=== PATIENT | female | born 1935 | race Caucasian/White ===

== ENCOUNTER 2022-08-05 10:44 | Emergency (ER) | payer BC, SELFPAY ==
[2022-08-05] VITALS (43 sets, daily range): BP systolic 109–142; BP diastolic 56–116; PULSE 50–66; RESP 9–29; TEMP 36.4; O2SAT 72–100
--- NOTE | ~2022-08-05 | XR_ITS ---
EXAMINATION: XR hand LT min 3V DATE: 08/05/2022 12:37 INDICATION: Left hand injury. TECHNIQUE: 3 views of left hand were obtained. COMPARISON: None. FINDINGS: There is a comminuted fracture of distal radius status post open reduction internal fixatio n with volar plate and screws. There is 6 degrees dorsal tilt of the distal articular surface. There is an avulsion fracture of the ulnar styloid. Osteopenia is noted. There is a transverse fracture of neck of third metacarpal with 2 mm ulnar displacement of the distal fracture fragment. There is an ob lique fracture of neck of fourth metacarpal with impaction and 2 mm ulnar displacement of the distal fracture fragment. There is a transverse fracture of neck of fifth metacarpal. There is impaction and 2 mm radial displacement of the distal fracture fragment. There is a fracture of diaphysis of fifth proximal phalanx. The distal fracture fragment demonstrates 17 degrees dorsal angulation and 1 mm uln ar displacement. There is an oblique fracture of diaphysis of fourth proximal phalanx in near-anatomi c alignment. There is mild osteoarthritis of some the interphalangeal joints and triscaphe joint. IMPRESSION: 1. Fractures of the third-fifth metacarpals and fourth and fifth proximal phalanges. 2. Comminuted fracture of distal radius status post open reduction internal fixation. 3. Avulsion fracture of the ulnar styloid. Reviewed, dictated and finalized at location A. IMPRESSION: 1. Fractures of the third-fifth metacarpals and fourth and fifth proximal phala nges. 2. Comminuted fracture of distal radius status post open reduction internal fix ation. 3. Avulsion fracture of the ulnar styloid.
--- NOTE | ~2022-08-05 | CT_ITS ---
EXAMINATION: CT facial & cervical spine wo DATE: 08/05/2022 12:28 INDICATION: Head injury. TECHNIQUE: Computed tomography (CT) of the maxillofacial region and cervical spine was performed with out intravenous contrast. Automated exposure control and iterative reconstruction technique were empl oyed. The dose-length product was 235.24 mGy-cm. COMPARISON: None FINDINGS: MAXILLOFACIAL CT: There are likely changes of ocular lens replacement surgeries. There is rightward deviation of the na marc septum. There is mild mucosal thickening in the paranasal sinuses. There are fracture deformities of the anterior and posterolateral madrigal of the left maxillary sinus, floor and lateral wall of the left orbit, and left zygomatic arch. There is extensive dental disease. There is soft tissue swelling of the left cheek. CERVICAL SPINE CT: Bone alignment is normal. Vertebral body heights are normal. There is mildly decreased disc height at C3-C4. The following disc levels are specifically discussed: C2-C3: There is mild bilateral uncovertebral joint osteoarthritis. There is mild bilateral facet join t osteoarthritis. There is no neural foraminal stenosis. There is no central canal stenosis. C3-C4: There is severe bilateral uncovertebral joint osteoarthritis. There is no facet joint osteoart hritis. There is mild bilateral neural foraminal stenosis. There is no central canal stenosis. C4-C5: There is mild bilateral uncovertebral joint osteoarthritis. There is no facet joint osteoarthr itis. There is no neural foraminal stenosis. There is no central canal stenosis. C5-C6: There is mild left uncovertebral joint osteoarthritis. There is no facet joint osteoarthritis. There is no neural foraminal stenosis. There is no central canal stenosis. C6-C7: There is no uncovertebral joint osteoarthritis. There is no facet joint osteoarthritis. There is no neural foraminal stenosis. There is no central canal stenosis. C7-T1: There is no uncovertebral joint osteoarthritis. There is mild right facet joint osteoarthritis . There is no neural foraminal stenosis. There is no central canal stenosis. IMPRESSION: 1. Fractures of the left zygomaticomaxillary complex. 2. Mild cervical spondylosis. Reviewed, dictated and finalized at location A.
--- NOTE | ~2022-08-05 | CT_ITS ---
EXAMINATION: CT brain wo con DATE: 08/05/2022 12:28 INDICATION: Head injury. TECHNIQUE: Computed tomography (CT) of the head was performed without intravenous contrast. The mA wa s adjusted according to patient size. Iterative reconstruction technique was employed. The dose-lengt h product was 605.33 mGy-cm. COMPARISON: None FINDINGS: There is no intracranial hemorrhage, acute infarction, or abnormal intracranial mass lesion . There are scattered areas of low attenuation in the cerebral white matter, which is within normal l imits for the patient's age. The ventricles are normal in size. 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 There are fractures of the left zygomaticomaxillary complex. IMPRESSION: 1. Normal aging brain. 2. Fractures of the left zygomaticomaxillary complex, likely chronic. Reviewed, dictated and finalized at location A.
--- NOTE | ~2022-08-05 | XR_ITS ---
EXAMINATION: XR knee LT 3V DATE: 08/05/2022 12:38 INDICATION: Left knee injury. TECHNIQUE: 3 views of left knee were obtained. COMPARISON: None. FINDINGS: Bone alignment is normal. No fracture. There is mild tricompartmental osteoarthritis of the knee. No knee joint effusion. IMPRESSION: 1. Mild left knee osteoarthritis. Reviewed, dictated and finalized at location A.
--- NOTE | 2022-08-05 11:08 | PC.NURSE ---
Pt states the fall was a mechanical and denies feeling dizziness or lightheadedness. Pt denies any LOC.
--- NOTE | 2022-08-05 12:27 | ED.GENADULT ---
HPI - General Adult General Chief complaint: Fall Stated complaint: UNWITNESSED FALL/HEAD INJURY Time Seen by Provider: 08/05/22 11:06 History of Present Illness HPI narrative: 87-year-old female presenting to the emergency department for evaluation after having a possible ground-level fall. Patient was found laying on the floor was complaining of left hand pain. Patient does have a prior injury to her left hand that is currently splinted. Patient was also laying on her face. Patient denies any pain or complaints. Patient does have history of dementia and does not recall her attempts at eloping or any fall or injury. Patient denies any complaints at this time. Related Data Allergies Allergy/AdvReac Type Severity Reaction Status Date / Time No Known Allergies Allergy Verified 08/05/22 10:51 Review of Systems Review of Systems: All systems reviewed & are unremarkable except as noted in HPI and below Exam Narrative: APPEARANCE: Well appearing, no pain, no distress, well-nourished. HEAD: normocephalic, atraumatic. EYES: PERRLA/EOMI, conjunctivae clear. NOSE: Normal no drainage NECK: Supple. No adenopathy, no masses. RESPIRATORY: Airway patent, respirations nonlabored. Clear to auscultation bilaterally, no rales, rhonchi, wheezing. CARDIOVASCULAR: Regular rate and rhythm without murmurs rubs or gallops. ABDOMINAL: Soft, nontender, nondistended, normal bowel sounds MUSCULOSKELETAL: Left wrist and fingers are splinted NEURO: Alert. Cranial nerves II through XII intact. Good gait. Good coordination SKIN: Warm, dry. Normal Color Course Course Emergency Course: 87-year-old female presented to the ED for evaluation after being found on the ground after a suspected fall. During the entire time in the ED patient has denied any new pain or complaints. Patient's left hand and fingers are splinted appropriately. On reevaluation patient continues to deny any complaints. Patient is neurovascular intact. Patient was after the results of her work-up. Patient was well-appearing at time of discharge from the ED. Vital Signs Vital signs: Vital Signs Temperature 97.6 F 08/05/22 10:51 Pulse Rate 55 L 08/05/22 10:51 Respiratory Rate 22 H 08/05/22 10:51 Blood Pressure 142/83 H 08/05/22 10:51 Pulse Oximetry 100 08/05/22 10:51 Oxygen Delivery Room Air 08/05/22 10:51 Temperature 97.6 F 08/05/22 10:51 Pulse Rate 53 L 08/05/22 17:31 Respiratory Rate 15 08/05/22 17:31 Blood Pressure 130/66 08/05/22 17:31 Pulse Oximetry 96 08/05/22 17:15 Oxygen Delivery Room Air 08/05/22 10:51 Medical Decision Making Vital Signs Vital Signs: Vital Signs Temperature 97.6 F 08/05/22 10:51 Pulse Rate 55 L 08/05/22 10:51 Respiratory Rate 22 H 08/05/22 10:51 Blood Pressure 142/83 H 08/05/22 10:51 Pulse Oximetry 100 08/05/22 10:51 Oxygen Delivery Room Air 08/05/22 10:51 Temperature 97.6 F 08/05/22 10:51 Pulse Rate 53 L 08/05/22 17:31 Respiratory Rate 15 08/05/22 17:31 Blood Pressure 130/66 08/05/22 17:31 Pulse Oximetry 96 08/05/22 17:15 Oxygen Delivery Room Air 08/05/22 10:51 Imaging Data Radiologist's impression: Impressions Head CT 08/05/22 12:33 IMPRESSION: 1. Normal aging brain. 2. Fractures of the left zygomaticomaxillary complex, likely chronic. ADDENDUM: 08/05/22 [id number] Upon further review and comparison with the maxillofacial CT, the left zygomaticomaxillary complex fractures are likely acute. Head/Cervical Spine/Facial Bones CT 08/05/22 12:36 IMPRESSION: 1. Fractures of the left zygomaticomaxillary complex. 2. Mild cervical spondylosis. Hand X-Ray 08/05/22 12:42 IMPRESSION: 1. Fractures of the third-fifth metacarpals and fourth and fifth proximal phalanges. 2. Comminuted fracture of distal radius status post open reduction internal fixation. 3. Avulsion fracture of the ulnar styloid. Knee X-Ray 08/05/22 12:47 IMPRESSION: 1.
--- NOTE | 2022-08-05 15:25 | PC.NURSE ---
Called [facility] for more info about pt and d/c instructions and report, attempted to call 2 times and got a hold of staff but not nursing staff. Attempted to call Pt daughter with phone number in chart without success at this time. ;Spoke with Bella, nursing staff at [facility] for d/c instructions and nursing staff confirmed she has hx of dementia and elopement behaviors.
--- NOTE | 2022-08-05 15:39 | PC.NURSE ---
retirement return 1536 [facility] BLS Truck 1536 [facility] ETA 21p 1538 [facility] accepted ETA 7542 Trip # [id number]
--- NOTE | 2022-08-05 18:16 | PC.NURSE ---
Ken here for pt transfer at this time. Pt moved to stretcher without difficulty.
--- NOTE | 2022-08-05 18:35 | PC.NURSE ---
Joseline notified at this time of pt arrival back to nursing facility.
== END 2022-08-05 18:17 ==
PROVIDERS: Emergency Provider Emergency Medicine; PCP Hospitalist
DX: S02.40FA Zygomatic fracture, left side, initial encounter for closed fracture (principal); S02.40DA Maxillary fracture, left side, initial encounter for closed fracture; W19.XXXA Unspecified fall, initial encounter; F03.90 Unspecified dementia, unspecified severity, without behavioral disturbance, psychotic disturbance, mood disturbance, and anxiety; S62.303D Unspecified fracture of third metacarpal bone, left hand, subsequent encounter for fracture with routine healing; S62.305D Unspecified fracture of fourth metacarpal bone, left hand, subsequent encounter for fracture with routine healing; S62.307D Unspecified fracture of fifth metacarpal bone, left hand, subsequent encounter for fracture with routine healing; S62.615D Displaced fracture of proximal phalanx of left ring finger, subsequent encounter for fracture with routine healing; S62.617D Displaced fracture of proximal phalanx of left little finger, subsequent encounter for fracture with routine healing; S52.502D Unspecified fracture of the lower end of left radius, subsequent encounter for closed fracture with routine healing; S52.612D Displaced fracture of left ulna styloid process, subsequent encounter for closed fracture with routine healing; X58.XXXD Exposure to other specified factors, subsequent encounter
CPT/HCPCS: 70450; 70486; 72125; 73130; 73562; 99284

== ENCOUNTER 2022-08-31 00:49 | Observation (INO) | payer BC, SELFPAY ==
[2022-08-31] VITALS (20 sets, daily range): BP systolic 106–153; BP diastolic 57–128; PULSE 63–89; RESP 5–20; TEMP 36.4–36.7; O2SAT 93–100
--- NOTE | ~2022-08-31 | CT_ITS ---
Clinical Indication: Chest pain, shortness of breath CT Scan of the Chest with Contrast: Technique: Contiguous sections were acquired throughout the chest after intravenous administration of 100 cc of Omnipaque 350. Dose reduction technique was used on this scan by utilizing automated expos ure control and iterative reconstruction technique. The dose-length product (DLP) was 301.60 mGy-cm. Findings: There is no evidence of any significant mediastinal, hilar or axillary lymphadenopathy. There is no f illing defect in the pulmonary arterial tree to suggest pulmonary embolus. There is no evidence of ao rtic dissection or aneurysm. There is no evidence of pleural or pericardial effusion. The lungs are clear, aside from calcified lingular granuloma. Images through the upper abdomen reveal small hiatal hernia. Impression: No evidence of pulmonary embolus, aortic dissection, or aortic aneurysm. No significant pulmonary abnormality. Reviewed, dictated and finalized at [facility]. Impression: No evidence of pulmonary embolus, aortic dissection, or aortic aneurysm. No significant pulmonary abnormality.
--- NOTE | ~2022-08-31 | XR_ITS ---
Clinical Indication: Chest pain AP and lateral views of the chest: Comparison: None Findings: The lungs are clear, without evidence of focal consolidation or pleural effusion. Cardiome diastinal silhouette is within normal limits. Bones and soft tissues are unremarkable. Impression: Normal chest. Reviewed, dictated and finalized at location . Impression: Normal chest.
--- NOTE | 2022-08-31 00:52 | ECG_ITS ---
Measurements Intervals [place] Rate: 86 P: 64 NE: 215 QRS: 6 QRSD: 90 T: 84 QT: 343 QTc: 411 Interpretive Statements SINUS RHYTHM WITH FIRST DEGREE AV BLOCK INCOMPLETE RIGHT BUNDLE BRANCH BLOCK BORDERLINE ST-T WAVE ABNORMALITY- LAT/HIGH LAT LEADS BASELINE ARTIFACT- I, II, III, AVR, AVL, AVF, V1-V6 BORDERLINE ECG NO PREVIOUS ECG AVAILABLE FOR COMPARISON Electronically Signed On 08-31-2022 6:42:05 CDT by Josse Paredes D.O.
[2022-08-31 01:11] LABS: Basophils Percent Auto 0.6 % (0.2-1.2); Eosinophils Absolute Auto 0.1 K/mm3 (0-0.3); Eosinophils Percent Auto 1.5 % (0-4.4); Hematocrit 39.7 % (37.0-47.0); Hemoglobin 13.8 g/dL (12.0-15.0); Immature Granulocyte Absolute 0.02 K/mm3 (0.00-0.031); Immature Granulocyte Percent A 0.3 % (0-0.5); Lymphocytes Absolute Auto 3.05 K/mm3 (0.9-3.2); Lymphocytes Percent Auto 42.7 % (18.3-44.2); Mean Corpuscular HGB Conc 34.8 g/dl (32-36); Mean Corpuscular Hemoglobin 31.5 pg (26-34); Mean Corpuscular Volume 90.6 fl (80-100); Mean Platelet Volume 10.5 fl (7.4-10.4); Monocytes Absolute Auto 0.4 K/mm3 (0.1-0.6); Monocytes Percent Auto 5.5 % (2.6-8.5); Neutrophils Absolute Auto 3.5 K/mm3 (1.3-6.7); Neutrophils Percent Auto 49.4 % (45.5-73.1); Platelet Count Result 251 k/mm3 (150-375); Red Blood Count 4.38 M/mm3 (4.2-5.4); Red Cell Distribution Width 13.2 % (11.5-14.5); White Blood Count 7.1 K/mm3 (4.5-10.0)
[2022-08-31 01:21] LABS: Alanine Aminotransferase 18 U/L (6-35); Alkaline Phosphatase 117 U/L (38-126); Anion Gap 7 mmol/L (8-16); Aspartate Amino Transferase 23 U/L (14-36); Bilirubin,Total 0.5 mg/dL (0.2-1.3); Blood Urea Nitrogen 18 mg/dL (7-17); Calcium 10.8 mg/dL (8.4-10.2); Carbon Dioxide 24 mmol/L (22-30); Chloride 109 mmol/L (98-107); Estimated CRCL calculation 47 ml/min; Estimated Glomerular Filt Rate > 60; Glucose 126 mg/dL (65-110); Lipase 92 U/L (23-300); Potassium 3.9 mmol/L (3.4-5.0); Sodium 140 mmol/L (137-145)
[2022-08-31 01:22] LABS: INR 0.9; Prothrombin Time 12.6 Seconds (11.1-14.7)
[2022-08-31 01:23] LABS: Partial Thromboplastin Time 26.9 SECONDS (22.3-36.8)
[2022-08-31 01:34] LABS: Troponin I < 0.012 ng/mL (0.000-0.034)
[2022-08-31 04:38] LABS: Troponin I < 0.012 ng/mL (0.000-0.034)
--- NOTE | 2022-08-31 04:54 | ED.GENADULT ---
HPI - General Adult General Chief complaint: Chest Pain Stated complaint: CP Time Seen by Provider: 08/31/22 01:03 History of Present Illness HPI narrative: This is an 87-year-old woman sent from residential for chest pain. Patient says she had several episodes of nausea and vomiting this afternoon. This was then followed by chest pain that she described as a squeezing pain on left side of her chest that radiates to her back. It is 7/10 in intensity but has been getting better since then. Patient says that she has experienced this multiple times over the last year and typically resolves on her own. No alleviating or exacerbating factors. It is associated w/ shortness of breath. No exertional component or diaphoresis. No fever chills or abdominal pain. No urinary symptoms. The patient did have a broken hand that has been splinted from earlier last month. Related Data Allergies Allergy/AdvReac Type Severity Reaction Status Date / Time No Known Allergies Allergy Verified 08/05/22 10:51 Exam Narrative: APPEARANCE: No apparent distress. pleasant polite Head: atraumatic. EYES: EOMI, NOSE: Atraumatic NECK: Trachea midline RESPIRATORY: No increased rate of breathing, clear to auscultation CARDIOVASCULAR: RRR, no peripheral edema ABDOMINAL: Non-distended soft nontender no guarding or rebound MUSCULOSKELETAl: left hand is in a splint, neurovascularly intact NEURO: Alert. Moving 4/4 extremities SKIN:: Warm, dry. Normal color PSYCHIATRIC: Normal affect Course Vital Signs Vital signs: Vital Signs Temperature 98.0 F 08/31/22 01:01 Pulse Rate 89 08/31/22 01:01 Respiratory Rate 18 08/31/22 01:01 Pulse Oximetry 100 08/31/22 01:01 Oxygen Delivery Room Air 08/31/22 01:01 Temperature 98.0 F 08/31/22 01:01 Pulse Rate 75 08/31/22 02:01 Respiratory Rate 20 08/31/22 02:00 Blood Pressure 153/91 H 08/31/22 01:43 Pulse Oximetry 99 08/31/22 02:15 Oxygen Delivery Room Air 08/31/22 03:15 Medical Decision Making [facility] Narrative Medical decision making narrative: -Presentation: 87-year-old female presenting with nausea vomiting and chest pain. -DDX includes but is not limited to: ACS, pneumonia, pulmonary embolism, viral syndrome -Co-morbidities complicating care: residential resident, Dementia -Social determinants of health: retired, lives in a residential -External Chart Review: previous ER notes -Hx from independent Sources: none -Discussion of Management/Consultants: Yoni-Hospitalist -Independent interpretation of studies: CBC within normal limits. Metabolic panel was unremarkable. Troponins were negative x2. Chest x-ray showed no acute cardiopulmonary process. CTA of the chest showed no evidence of pulmonary embolism, aortic dissection, pneumonia, or infiltrates. Independent EKG interpretation: Rhythm [sinus], Rate [86], Marshall -[normal], OR -[normal], QRS [narrow], QTC [normal], T waves -[negative for concerning inversions], ST Segments - T-wave inversions in V5 V6. Final interpretations: Normal Sinus Rhythm with T-wave inversions in V5 V6. No previous EKGs to compare to. HEART Score for Major Cardiac Events from [employer] on 08/31/2022 All calculations should be rechecked by clinician prior to use RESULT SUMMARY: 5 points Moderate Score (4-6 points) Risk of MACE of 12-16.6%. INPUTS: History ?> 1 = Slightly suspicious EKG ?> 1 = Non-specific repolarization disturbance Age ?> 2 = >=5 Risk factors ?> 1 = 1-2 risk factors Initial troponin ?> 0 = <=normal limit Dx tests considered but not ordered: -Procedures: -Interventions: Aspirin 325 mg -Shared decision making / Disposition: Re-evaluation patient still has some left-sided chest pain. Her heart score is 5. She will be admitted the hospital for moderate risk chest pain. -RX Vital Signs Vital Signs: Vital Signs Temperature 98.0 F 08/31/22 01:01 Pulse Rate 89 08/31/22
--- NOTE | 2022-08-31 06:48 | PC.NURSE ---
spoke to dr. wu and patient is refusing to be admitted, patient will not lay in bed
--- NOTE | 2022-08-31 06:50 | PC.NURSE ---
spoke to kamini, patients niece and informed that patient will be admitted, patient upset but due to her dementia, is recommending it. patient able to communicate with staff and oriented to person and time but confused about where she lives and situation
[2022-08-31] MEDS: HALOPERIDOL LACTATE 5 MG/ML VIAL 2.5 MG IM (07:00)
--- NOTE | 2022-08-31 07:08 | PC.NURSE ---
patient not cooperative, haldol given
--- NOTE | 2022-08-31 07:09 | PC.NURSE ---
report called to lucien napier
--- NOTE | 2022-08-31 07:20 | PC.NURSE ---
attempt to take pt to floor bed unsuccessful. pt refuses to be admitted and stating i dont have any fucking chest pain
--- NOTE | 2022-08-31 10:17 | PCCCNOTE ---
Addendum entered by Sarah Parsons RN 08/31/22 10:30: Phone call to TERE Barajas with phone number on file, no answer, kept ringing and VM did not picker. Original Note: Called by citrus fruit colorer Dan because patient is refusing to be admitted, Niece was agreeable earlier today. There are two sons but we do not have their phone numbers. Met with patient in room 9, she states that she lives by herself at [address] [place] [address], [address] [place]. She states that she used to be at [facility] and her niece Bob tricked her into being there, said that she was taking her out to lunch and then dropped her at [facility]. She states that she has two adult sons Tres and Toro Maria but she does not know their phone numbers. Patient is able to provide her name, , location, date and president correctly. This spiritual care coordinator advises that she will make some calls. She does not want me to call Bob. Per review of ER note, states that patient came from senior care. Previous ER visit that states that she is from [facility]. Called to Lacie at [facility] spoke w/ she and DON on speaker phone. There is no POA for the patient, when they have a need they call the niece Bob and TERE Maria. Patient is there resident and come from there today via EMS. She does have dementia and is very confused, history of schizophrenia. Explained that she is admitted to the hospital but is cussing, angry and refusing to go upstairs for her admission. They will accept back once she is discharged from the hospital. pharmacy service associate, Dan updated on all noted.
--- NOTE | 2022-08-31 11:00 | PC.NURSE ---
registered nurse cardiovascular icu and monorail charger operator at bedside talking with pt.
--- NOTE | 2022-08-31 11:25 | PC.NURSE ---
Pt's daughter in-law Evelin, , states that pt has a hx of dementia that was recently. Evelin states that pt has been argumentative because of the dementia and wants to leave rehab and return home. Pt's family is requesting some sort of medication to help calm and stabilize pt's mood.
--- NOTE | 2022-08-31 11:33 | PM.CNCAR ---
Assessment and Plan Assessment and plan (1) Chest pain: Code(s): R07.9 - Chest pain, unspecified Status: Acute Assessment and Plan: Per reports, patient had chest pain. However, upon my discussion with the patient, she states she absolutely did not have any chest pain prior to admission or currently and is adamant that she only had nausea/vomiting after eating breakfast. Troponins negative. EKG with sinus rhythm with incomplete right bundle branch block, nonspecific STTW abnormality. Given no cardiac symptoms, do not recommend any additional cardiac workup at this time. Monitor for any cardiac symptoms. Cardiology will sign off at this time. Recommendations/plan discussed with the hospitalist, Dr. Sharp. History of Present Illness History of Present Illness Consult date/time: 08/31/22 11:33 Requesting physician: Garry Stone MD Consult reason: chest pain Reason For Visit: Mod Risk Chest Pain Narrative: We are consulted for chest pain. This is an 87-year-old female who presented for evaluation of nausea, vomiting, and supposedly chest pain. Lives in a assisted/memory longterm. Patient tells me that she does not want to be here in the hospital and is being forced to stay by her niece, who is POA. Patient tells me that she had some nausea and vomiting after she had breakfast. States that the food they feed her is terrible and her breakfast looked like dog food. She said her roommate also felt nauseous afterwards too. Patient states they made her come into the hospital for evaluation of chest pain but patient tells me she never had any chest pain and is currently feeling okay. ER evaluation showed EKG with sinus rhythm with incomplete right bundle branch block, nonspecific STTW abnormality. Patient denies any past cardiac issues. Review of Systems Review of Systems: All systems reviewed & are unremarkable except as noted in HPI and below (HPI) [facility] Social History Social History Smoking status: Unknown if ever smoked Alcohol intake: unknown Substance use: unknown Spiritual care concerns: No Comments PMHx: Reported history of dementia. Denies past cardiac issues. Surgical history: No reported past surgeries FHx: Reviewed, non-contributory Social history: Lives in a memory longterm. Niece is POA. Meds Home Medications and Allergies Allergies Allergy/AdvReac Type Severity Reaction Status Date / Time No Known Allergies Allergy Verified 08/05/22 10:51 Vital Signs Vital Signs - 24 hr 08/31/22 01:01 08/31/22 03:15 08/31/22 01:26 Temperature 36.7 C Pulse Rate 89 Respiratory Rate 18 Blood Pressure Pulse Oximetry 100 100 Oxygen Delivery Room Air Room Air 08/31/22 01:41 08/31/22 01:43 08/31/22 01:45 Temperature Pulse Rate 80 78 Respiratory Rate 14 Blood Pressure 153/91 H Pulse Oximetry 93 Oxygen Delivery 08/31/22 01:46 08/31/22 02:00 08/31/22 02:01 Temperature Pulse Rate 76 77 75 Respiratory Rate 19 20 Blood Pressure Pulse Oximetry 100 100 96 Oxygen Delivery 08/31/22 02:15 08/31/22 05:24 08/31/22 05:46 Temperature Pulse Rate Respiratory Rate 20 Blood Pressure 119/94 H 142/128 H Pulse Oximetry 99 Oxygen Delivery 08/31/22 05:49 08/31/22 09:36 08/31/22 09:45 Temperature Pulse Rate Respiratory Rate 5 L Blood Pressure Pulse Oximetry 99 99 Oxygen Delivery 08/31/22 09:47 08/31/22 10:02 08/31/22 10:17 Temperature Pulse Rate Respiratory Rate Blood Pressure 106/94 H 136/61 128/57 L Pulse Oximetry 100 Oxygen Delivery 08/31/22 11:23 Temperature Pulse Rate 82 Respiratory Rate Blood Pressure Pulse Oximetry Oxygen Delivery Exam Const: General: comfortable and no acute distress HENMT: Mouth: Yes moist mucous membranes Eyes: General: appearance normal, both eyes and all related structures Sclera: scler
--- NOTE | 2022-08-31 11:43 | PC.NURSE ---
This patient, Alla Adam, was admitted to IMU Room 212-01 from ED at 1134 via stretcher pt refusing care at this time. Patient/family oriented to hospital policies and general routines including ID bracelet, bed and alarms, visiting hours, pain management, procedures, bathroom and other care routines, personal items, smoking policy, room service/diet, and visiting hours. Information on how to activate the Rapid Response Team has been discussed. Patient/Family are encouraged to report perceived risks to care and to ask questions if they do not understand what they are told or what they should do.
--- NOTE | 2022-08-31 11:45 | PC.NURSE ---
Pt is refusing to put gown on for staff and refusing skin assessment at this time very angry.
[2022-08-31 12:35] LABS: Glucose Point of Care 141 mg/dl (65-105)
--- NOTE | 2022-08-31 13:39 | PM.SD2 ---
Same Day Admit/Disch: HPI History of Present Illness Chief complaint: Mod Risk Chest Pain Narrative: Alla Adam is a 87 year old female with DM here for nausea, vomiting and chest pain. Patient is alert and mostly oriented and provide the following history. She had about 4 episodes of nausea vomiting occurred after eating yesterday. No abdominal pain. No diarrhea. She does mention that there are other individuals at the nursing or sick with GI symptoms. She denies any chest pain, arm pain, jaw pain or back pain. No diaphoresis, shortness of breath cough or palpitations. No history of coronary disease. She has never had a myocardial infarction. No history of seizures, strokes or thyroid disease. No fever chills. No dysuria or hematuria. No odynophagia or dysphagia. In the emergency room, she was hemodynamically stable. Blood pressure was mildly elevated. Although patient denies having chest pain, patient was brought to emergency room because of the complaints of chest pain that was listed at 7/10 that radiates to her back. She describes as squeezing sensation on the left side of her chest. FOR[facility]LY [facility] Past Medical History Medical History (Updated 08/31/22 @ 13:45 by Kareem Sharp MD) Anemia Diabetes mellitus Essential hypertension Fracture of left hand GERD (gastroesophageal reflux disease) Hypothyroidism IBS (irritable bowel syndrome) Maxillary fracture Schizoaffective disorder Surgical History Surgical History (Updated 08/31/22 @ 13:45 by Kareem Sharp MD) H/O: hysterectomy Family History Family History (Updated 08/31/22 @ 13:46 by Kaerem Sharp MD) Other Family history unknown Social History Social History (Updated 08/31/22 @ 13:47 by Kareem Sharp MD) Social History: She denies alcohol or drug use. She is a lifelong nonsmoker. She is at a skilled nursing. She is DNR. She nominates her niece to be the individual would make medical decisions for her if she is unable Smoking status: Unknown if ever smoked Alcohol intake: unknown Substance use: unknown Spiritual care concerns: No Same Day Admit/Disch: Med Pre-admit Medications Home Medications Medication Instructions Recorded Confirmed Type albuterol sulfate 90 mcg/actuation 2 puff inhalation QID PRN Agitation 08/31/22 08/31/22 History aerosol inhaler levothyroxine 100 mcg tablet 100 mcg PO DAILY 08/31/22 08/31/22 History olanzapine 2.5 mg tablet 2.5 mg PO TID PRN agitiation 08/31/22 08/31/22 History Exam Narrative: AF 97.6 145/95 83 20 100% ra Gen - well-nourished, well-developed female in no acute respiratory distress who is nontoxic-appearing lying semi recumbent in bed HEENT - normocephalic. Atraumatic. Pupils equal round and reactive. Extraocular motions intact. Sclera clear and anicteric. Nares patent. Oropharynx was poorly visualized No oral lesions. Moist mucous membranes. Tongue was midline. Palate vielka symmetrically. No facial asymmetry. Neck - neck was supple. No dominant adenopathy, thyromegaly or masses. Chest - lungs are clear to auscultation bilaterally. No wheezes or crackles. Breast exam was deferred. CV - heart was regular rate and rhythm. S1-S2. 2/6 systolic murmur lower sternal border Abd - abdomen was soft. Nontender. Nondistended. Positive bowel sounds. No organomegaly or masses. Ext - no clubbing, cyanosis or edema. 2+ DP pulses bilaterally. Left UE in soft cast. 2+ left radial pulse. Normal sensation to the left fingers. Neuro - patient is alert and oriented x3 (not month). Strength is 5/5 in both upper and lower extremities. Cranial nerves 2-12 are intact. Speech is clear. Psych - normal mood and affect. Patient is pleasant and cooperative. Skin - warm and dry. No rashes noted. DS: Data Data Completed and Pending Labs on day of discharge: Labs from last 24 hours 08/31/22 08/31/22 08/31/22 12:03 04:08 01:05 WBC 7.1 RBC 4.38 Hgb 13.8 Hct 39
--- NOTE | 2022-08-31 15:46 | PC.NURSE ---
This nurse gave report to Betty at [facility] at 1536
== END 2022-08-31 18:15 ==
LOC: ANHED 05:09 → ANHIMU 13:57
PROVIDERS: Internal Medicine; Pediatrics; Admitting Provider Internal Medicine; Emergency Provider Emergency Medicine; PCP Hospitalist; Visit Provider Internal Medicine
DX: R07.9 Chest pain, unspecified (principal); E11.9 Type 2 diabetes mellitus without complications; I10 Essential (primary) hypertension; F25.9 Schizoaffective disorder, unspecified; R06.02 Shortness of breath; I44.0 Atrioventricular block, first degree; I45.10 Unspecified right bundle-branch block; R94.31 Abnormal electrocardiogram [ECG] [EKG]; F03.90 Unspecified dementia, unspecified severity, without behavioral disturbance, psychotic disturbance, mood disturbance, and anxiety; D64.9 Anemia, unspecified; K21.9 Gastro-esophageal reflux disease without esophagitis; K58.9 Irritable bowel syndrome, unspecified; Z66 Do not resuscitate; Z79.51 Long term (current) use of inhaled steroids; Z79.899 Other long term (current) drug therapy
CPT/HCPCS: 36415; 71046; 71275; 80053; 82948; 83690; 84484; 85025; 85610; 85730; 93005; 99285; A9270; G0378; J1630; Q9967

== ENCOUNTER 2023-07-15 15:15 | Observation (INO) | payer MEDICARE, MEDICAID, SELFPAY ==
--- NOTE | ~2023-07-15 | XR_ITS ---
EXAMINATION: XR chest 1V portable 07/15/2023 21:01 INDICATION: Chest pain. Low blood pressure. PROCEDURE: AP portable chest COMPARISON: 08/31/2022 FINDINGS: The lungs are clear. The cardiomediastinal silhouette is within normal limits. There are no pleural effusions. There is no pneumothorax suspected. IMPRESSION: 1: NO ACUTE CARDIOPULMONARY DISEASE. Reviewed, dictated and finalized at location A.
[2023-07-15 15:15] VITALS: BP 101/51; PULSE 90; RESP 16; TEMP 36.2; O2SAT 100
--- NOTE | 2023-07-15 15:20 | ECG_ITS ---
Measurements Intervals [place] Rate: 90 P: 0 LA: 195 QRS: -20 QRSD: 94 T: 53 QT: 359 QTc: 440 Interpretive Statements SINUS RHYTHM INCOMPLETE RIGHT BUNDLE BRANCH BLOCK CONSIDER ANTERIOR INFARCT, AGE INDETERMINATE INFERIOR INFARCT, AGE INDETERMINATE ST-T WAVE ABNORMALITY IN HIGH LATERAL LEADS- CONSIDER ISCHEMIA BASELINE ARTIFACT- I, II, III, AVR, AVL, AVF, V1 ABNORMAL ECG COMPARED TO ECG 08/31/2022 00:57:53 ST-T WAVE ABNORMALITY NOW PRESENT Electronically Signed On 07-15-2023 15:57:56 CDT by Josse Paredes D.O.
[2023-07-15 16:12] LABS: Alanine Aminotransferase 13 U/L (6-35); Albumin Level 3.7 g/dL (3.5-5.1); Alkaline Phosphatase 131 U/L (38-126); Anion Gap 8 mmol/L (8-16); Aspartate Amino Transferase 20 U/L (14-36); Bilirubin,Total 0.7 mg/dL (0.2-1.3); Blood Urea Nitrogen 15 mg/dL (7-17); Calcium 10.6 mg/dL (8.4-10.2); Carbon Dioxide 20 mmol/L (22-30); Chloride 113 mmol/L (98-107); Estimated Glomerular Filt Rate > 60; Glucose 165 mg/dL (65-110); Potassium 3.9 mmol/L (3.4-5.0); Sodium 141 mmol/L (137-145)
[2023-07-15 16:29] LABS: Hematocrit 40.9 % (37.0-47.0); Hemoglobin 13.3 g/dL (12.0-15.0); Mean Corpuscular HGB Conc 32.5 g/dl (32-36); Mean Corpuscular Hemoglobin 28.7 pg (26-34); Mean Corpuscular Volume 88.3 fl (80-100); Mean Platelet Volume 10.3 fl (7.4-10.4); Platelet Count Result 135 k/mm3 (150-375); Red Blood Count 4.63 M/mm3 (4.2-5.4); White Blood Count 10.7 K/mm3 (4.5-10.0)
[2023-07-15 16:51] LABS: Appearance Urine Turbid (Clear); Bacteria Urine 4+ /hpf; Bilirubin Urine Negative (Negative); Blood Urine 1+ (Negative); Color Urine Yellow (Yellow); Glucose Urine UA Negative (Negative); Ketones Urine Trace mg/dL (Negative); Leukocyte Esterase Ur 3+ LEU/UL (Negative); Need Manual Microscopic Reviewed; Nitrate Urine Positive (Negative); Protein Urine 2+ mg/dL (Negative); Specific Grav Ur 1.016 (1.001-1.035); Squamous Epithelial Cell Urine None Seen /hpf (Few); WBC Urine >100 /hpf (0-3); pH Urine 7.5 (5.0-9.0)
[2023-07-15 16:52] LABS: Add Urine Microscopic? YES
--- NOTE | 2023-07-15 17:13 | ED.SYNCOPE ---
HPI - Syncope General Chief Complaint: Syncope <Avery Jamison MD - Last Filed: 07/15/23 18:37> Stated Complaint: CP <Avery Jamison MD - Last Filed: 07/15/23 18:37> Time Seen by Provider: 07/15/23 15:21 <Avery Jamison MD - Last Filed: 07/15/23 18:37> Source: EMS <Avery Jamison MD - Last Filed: 07/15/23 18:37> Mode of arrival: EMS <Avery Jamison MD - Last Filed: 07/15/23 18:37> Limitations: no limitations <Avery Jamison MD - Last Filed: 07/15/23 18:37> History of Present Illness HPI narrative: 67-year-old with history of hypertension was brought in from half-way with complaints of syncopal episode. As per the half-way and EMS patient was complaining of chest pain last night did receive 2 nitro which patient upon arrival to the ER patient has no complaints. <Avery Jamison MD - Last Filed: 07/15/23 18:37> MD complaint: almost passed out <Avery Jamison MD - Last Filed: 07/15/23 18:37> Prodromal symptoms: none <Avery Jamison MD - Last Filed: 07/15/23 18:37> Witnessed: No <Avery Jamison MD - Last Filed: 07/15/23 18:37> Current symptoms: none <Avery Jamison MD - Last Filed: 07/15/23 18:37> Related Data Home Medications: Home Medications Medication Instructions Recorded Confirmed albuterol sulfate 90 mcg/actuation 2 puff inhalation QID PRN Agitation 08/31/22 08/31/22 aerosol inhaler levothyroxine 100 mcg tablet 100 mcg PO DAILY 08/31/22 08/31/22 olanzapine 2.5 mg tablet 2.5 mg PO TID PRN agitiation 08/31/22 08/31/22 <Avery Jamison MD - Last Filed: 07/15/23 18:37> Allergies/Adverse Reactions: Allergies Allergy/AdvReac Type Severity Reaction Status Date / Time No Known Allergies Allergy Verified 08/05/22 10:51 <Avery Jamison MD - Last Filed: 07/15/23 18:37> Review of Systems Review of Systems: All systems reviewed & are unremarkable except as noted in HPI and below <Avery Jamison MD - Last Filed: 07/15/23 18:37> Constitutional: Constitutional: Reports no additional constitutional complaints <Avery Jamison MD - Last Filed: 07/15/23 18:37> Eyes: Eyes: Reports no additional eye complaints <Avery Jamison MD - Last Filed: 07/15/23 18:37> ENT: Reports system reviewed and no additional complaints, except as documented <Avery Jamison MD - Last Filed: 07/15/23 18:37> Cardiovascular: Cardiovascular: Reports no additional cardiovascular complaints <Avery Jamison MD - Last Filed: 07/15/23 18:37> Respiratory: Respiratory: Reports no additional respiratory complaints <Avery Jamison MD - Last Filed: 07/15/23 18:37> Gastrointestinal: Gastrointestinal: Reports no additional gastrointestinal complaints <Avery Jamison MD - Last Filed: 07/15/23 18:37> Musculoskeletal: Musculoskeletal: Reports no additional musculoskeletal complaints <Avery Jamison MD - Last Filed: 07/15/23 18:37> Integumentary/Breasts: Skin/Breast: Reports system reviewed and no additional complaints, except as docu <Avery Jamison MD - Last Filed: 07/15/23 18:37> Psychiatric: Psychiatric: Reports no additional psychiatric complaints <Avery Jamison MD - Last Filed: 07/15/23 18:37> Allergic/Immunologic: Allergic/Immunologic: Reports no additional allergic/immunologic complaints <Avery Jamison MD - Last Filed: 07/15/23 18:37> PMFSH Past Medical History Medical History: Medical History (Updated 07/15/23 @ 21:26 by Kareem Hadley MD) Anemia Diabetes mellitus Essential hypertension Fracture of left hand GERD (gastroesophageal reflux disease) Hypothyroidism IBS (irritable bowel syndrome) Maxillary fracture Schizoaffective disorder <Avery Jamison MD - Last Filed: 07/15/23 18:37> Surgical History Surgical History: Surgical History (Updated 08/31/22 @ 13:45 by Kareem Sharp MD) H/O: hysterectomy <Avery Jamison MD - Last Filed: 07/15/23 18:37> Family History Family History:
[2023-07-15 18:54] VITALS: BP 113/71; PULSE 83; RESP 16; O2SAT 96
--- NOTE | 2023-07-15 19:37 | PC.NURSE ---
this rn assumed care of patient. this rn took patient report from MARIEL Hernandez.
[2023-07-15 19:55] LABS: Troponin I 0.298 ng/mL (0.000-0.034)
[2023-07-15 20:31] VITALS: BP 133/77; PULSE 83; RESP 22
--- NOTE | 2023-07-15 20:50 | PM.IMHP ---
H&P: HPI History of Present Illness Date/Time: 07/15/23 20:50 Chief Complaint: Chest pain, near-syncope after nitro Narrative: 87-year-old female with past medical history of dementia, schizophrenia essential hypertension, asthma, GERD, irritable bowel syndrome, diabetes and hypothyroidism who presented to the ER from [facility] via EMS due to near syncopal episode after nitro administration. Source of information is obtained from external medical records and ER report. Patient was alert oriented only to person and the fact that she was in hospital and was unable to provide significant history. Her only complaint at the time of my evaluation was that she wanted some coffee. She did not recall why she was brought to the hospital or any preceding symptoms. She actually could not even recall her current last name and could only provide me with her maiden name. Patient stated that she was 40 years old. The patient had evidently had some chest pain at the assisted last night and received 2 sublingual nitroglycerin. According to EMS report the patient had had a near syncopal episode and her blood pressures were borderline low on their arrival to the scene. By the time the patient arrived to our ER her blood pressures had normalized. Patient was not in any distress but her troponin was elevated to 0.3 with her 2nd troponin are ready trending downward to 0.29. Patient had DNR forms monitor from the assisted. Her EKG did show some ST and T-wave abnormalities in the high lateral leads concerning for ischemia this was a slight change compared to EKG from 08/31/2022. The patient's urine did appear turbid but patient denies any urinary symptoms. However patient was an unreliable historian and was markedly confused. Patient was given a dose of Rocephin in the ER. She did not receive any aspirin in the ER and is unclear if she received aspirin in route. Review of Systems Review of Systems: ROS unobtainable: Yes unobtainable due to mental status [facility] Past Medical History Medical History (Updated 07/16/23 @ 01:49 by Sue Vallejo DO) Anemia Dementia Diabetes mellitus Essential hypertension Fracture of left hand GERD (gastroesophageal reflux disease) Hypothyroidism IBS (irritable bowel syndrome) Maxillary fracture Schizoaffective disorder Surgical History Surgical History H/O: hysterectomy Family History Family History Other Family history unknown Social History Social History (Updated 07/16/23 @ 01:51 by Sue Vallejo DO) Social History: She denies alcohol or drug use. She is a lifelong nonsmoker. She is at a assisted. Code status: DNR/DNI (state form on the chart) Smoking status: Never smoker Second hand tobacco smoke exposure: No Alcohol intake: never Substance use: never Do You Feel Safe in your Home?: Yes Lack of Transportation: No Lack of Food: Never True Current Housing: I Have Housing Concerned About Future Housing: No Difficulty Paying Gas/Electric Bills: No Difficulty Paying for Meds: No Currently Unemployed: No Education: Don't Know Difficulty w/ Childcare or Family Care: No Spiritual care concerns: No Meds Home Medications and Allergies Home Medications Medication Instructions Recorded Confirmed Type albuterol sulfate 90 mcg/actuation 2 puff inhalation QID PRN sob 08/31/22 07/15/23 History aerosol inhaler levothyroxine 100 mcg tablet 100 mcg PO DAILY 08/31/22 07/15/23 History aripiprazole 2 mg tablet 2 mg PO DAILY 07/15/23 07/15/23 History famotidine 20 mg tablet 20 mg PO BID 07/15/23 07/15/23 History nitroglycerin 0.4 mg sublingual 0.4 mg sublingual Q5-15M PRN Chest 07/15/23 07/15/23 History tablet Pain ondansetron 4 mg disintegrating 4 mg PO Q6H PRN Nausea 07/15/23 07/15/23 History tablet Allergies Al
[2023-07-15 21:16] VITALS: BP 132/80; PULSE 86; RESP 22; O2SAT 94
[2023-07-15 21:46] VITALS: BP 128/61; PULSE 90; RESP 20; O2SAT 95
[2023-07-15] MEDS: SODIUM CHLORIDE 0.9% IV 1,000 ML 75 ML IV CONT (21:59)
[2023-07-15 22:30] VITALS: BP 131/69; PULSE 84; RESP 20; TEMP 36.4; O2SAT 95; BMI 25.7
--- NOTE | 2023-07-15 23:10 | ADMGEN ---
This patient, Alal Adam, was admitted to IMU Room 213-01 on 07/15/23 at 2230. Patient/family oriented to hospital policies and general routines including ID bracelet, bed and alarms, visiting hours, pain management, procedures, bathroom and other care routines, personal items, smoking policy, room service/diet, and visiting hours. Information on how to activate the Rapid Response Team has been discussed. Patient/Family are encouraged to report perceived risks to care and to ask questions if they do not understand what they are told or what they should do.
[2023-07-16] VITALS (18 sets, daily range): BP systolic 113–124; BP diastolic 46–88; PULSE 68–89; RESP 18–20; TEMP 36.5–36.6; O2SAT 94–99
[2023-07-16 00:25] LABS: Troponin I 0.245 ng/mL (0.000-0.034)
[2023-07-16 05:14] LABS: Hematocrit 39.7 % (37.0-47.0); Hemoglobin 12.9 g/dL (12.0-15.0); Immature Platelet Fraction Pct 4.7 % (0.9-11.2); Mean Corpuscular HGB Conc 32.5 g/dl (32-36); Mean Corpuscular Hemoglobin 28.9 pg (26-34); Mean Corpuscular Volume 88.8 fl (80-100); Mean Platelet Volume 11.1 fl (7.4-10.4); Platelet Count Result 123 k/mm3 (150-375); Red Blood Count 4.47 M/mm3 (4.2-5.4); Red Cell Distribution Width 13.8 % (11.5-14.5); White Blood Count 6.7 K/mm3 (4.5-10.0)
[2023-07-16 05:23] LABS: Alanine Aminotransferase 10 U/L (6-35); Albumin Level 3.2 g/dL (3.5-5.1); Alkaline Phosphatase 112 U/L (38-126); Anion Gap 5 mmol/L (8-16); Aspartate Amino Transferase 23 U/L (14-36); Bilirubin,Total 0.6 mg/dL (0.2-1.3); Blood Urea Nitrogen 16 mg/dL (7-17); Carbon Dioxide 21 mmol/L (22-30); Chloride 114 mmol/L (98-107); Cholesterol 144 mg/dL (0-200); Estimated CRCL calculation 47 ml/min; Estimated Glomerular Filt Rate > 60; Glucose 112 mg/dL (65-110); HDL Direct 30 mg/dL; Potassium 3.7 mmol/L (3.4-5.0); Sodium 140 mmol/L (137-145); Triglycerides 99 mg/dL (<150)
[2023-07-16 05:34] LABS: LDL Cholesterol Direct 86 mg/dL
[2023-07-16] MEDS: LEVOTHYROXINE SODIUM 100 MCG TABLET PO (06:18)
[2023-07-16] MEDS: ASPIRIN 81 MG ENTERIC TABLET PO (09:35)
[2023-07-16] MEDS: ENOXAPARIN 40 MG/0.4 ML SYRINGE SUB-Q (09:35)
[2023-07-16] MEDS: FAMOTIDINE 20 MG TABLET PO ×2 (09:35→16:16)
[2023-07-16] MEDS: ARIPiprazole 2 MG TABLET PO (09:35)
--- NOTE | 2023-07-16 11:22 | PM.IMPN ---
Progress Note: A&P Assessment and Plan (1) Elevated troponin: Code(s): R79.89 - Other specified abnormal findings of blood chemistry Status: Acute Assessment and Plan: Elevated troponin and chest pain consistent with likely recent non STEMI. Will place patient on 81 mg aspirin daily. Trop 0.31, 0.298, 0.245 The patient is DNR/DNI. ER provider inform me that the patient was alert oriented earlier in the ER visit and was refusing any intervention or further evaluation. This will need to be discussed with patient family given her history of dementia. Although given her age and comorbidities she would not be great candidate for long-term anti-platelet therapy if she were to require cardiac cath/stent. Will monitor for any a evidence of chest pain. Nitroglycerin has been ordered as needed. Lipid panel WNL Will place patient on 81 mg aspirin daily. 07/15 Due to patient not having active cardiac symptoms, family is wanting to hold off on any intervention at this time. (2) Abnormal finding on urinalysis: Code(s): R82.90 - Unspecified abnormal findings in urine Status: Acute Assessment and Plan: Patient does have an abnormal urine but denies any symptoms. Rocephin initiated. Urine culture pending. Adjust antibiotic therapy to culture results. No previous urine culture to compare. (3) Syncope: Qualifiers: Syncope type: unspecified Qualified Code(s): R55 - Syncope and collapse Code(s): R55 - Syncope and collapse Status: Acute Assessment and Plan: Syncope likely due to drop in blood pressure from nitroglycerin given at shelter. (4) Hypotension: Qualifiers: Hypotension type: hypotension due to drug Qualified Code(s): I95.2 - Hypotension due to drugs Code(s): I95.9 - Hypotension, unspecified Status: Resolved Assessment and Plan: Hypotensive when EMS arrived on scene. Has since resolved. (5) Hypercalcemia: Code(s): E83.52 - Hypercalcemia Status: Acute Assessment and Plan: She does have some mild hypercalcemia which was present on prior labs. Vitamin-D level and PTH pending 07/15 Resolved with fluids. Subjective Date/time seen: 07/16/23 11:22 Interval history: patient doing well and surrounding comfortably in bed. Patient is alert and oriented x2. Patient is unable to give details about the events leading up to her hospitalization. According to patient's daughter this is normal for her and she is typically not alert and oriented. I discussed patient's condition with her daughter and due to her being asymptomatic regarding chest pain, shortness a breath nausea vomiting she is not wanting to pursue a cardiac workup at this time. If patient becomes symptomatic or worsens she may reconsider. Currently being treated for UTI. Urine cultures pending. Exam Narrative: GENERAL: Comfortable, no acute distress HENMT: moist mucous membranes EYES: EOM intact b/l NECK: no lymphadenopathy RESPIRATORY: clear to auscultation CARDIO: RRR GI: soft, nontender, bowel sounds present SKIN: no rashes EXTREMITIES: no edema, redness or tenderness Objective Data Vital Signs Vital Signs: Vital Signs - 24 hr 07/15/23 15:15 07/15/23 18:54 07/15/23 20:31 Temperature 97.1 F L Pulse Rate 90 83 83 Respiratory Rate 16 16 22 H Blood Pressure 101/51 L 113/71 133/77 Pulse Oximetry 100 96 Oxygen Delivery Room Air 07/15/23 21:16 07/15/23 21:46 07/15/23 22:30 Temperature 97.5 F L Pulse Rate 86 90 84 Respiratory Rate 22 H 20 20 Blood Pressure 132/80 128/61 131/69 Pulse Oximetry 94 95 95 Oxygen Delivery 07/16/23 00:00 07/16/23 00:00 07/16/23 02:00 Temperature Pulse Rate 84 79 Respiratory Rate Blood Pressure Pulse Oximetry 95 Oxygen Delivery Room Air 07/16/23 04:00 07/16/23 04:00 07/16/23 05:21 Temperature
[2023-07-16] MEDS: SODIUM CHLORIDE 0.9% IV 1,000 ML 75 ML IV CONT (12:45)
--- NOTE | 2023-07-16 20:40 | PC.NURSE ---
Received call from Jonathan Ambrose RN that patients heart rate had dropped to 20 and she thought the patient would pass immanently. Patient was a DNR/DNI. Patient had gotten self out of bed setting off bed alarm to have bowel movement. While up to bathroom became weak and was placed in wheelchair and returned to bed. On arrival to room patient had passed and Nicole Bolivar announced time of at 1955. Attempted to reach faraz Howell at 2001-no answer on home phone; message left to call [phone] [facility]. 2nd emergency contact, mary lou Rojas, called and made aware of passing. Bob states she will try to get ahold of Lynda. Bob states [facility] would be used. No call from daughter at this time, 2047.
--- NOTE | 2023-07-16 20:43 | PC.NURSE ---
Nursing was called into the room by Kay Miner, nursing unit clerk. Patient was in the bathroom and feeling extremely weak. Jonathan FLOYD and I responded. We were able to get the patient seated in a wheelchair and transferred to the bed with 3 assist. Once in bed, the patient had agonal breathing with a heart rate in the 30s and a weak and thready pulse. The patient was a DNR status. Supplemental oxygen was applied, however the patient continued to deteriorate to PEA. Sue Mohamud RN, ICU/IMU charge nurse and Nicole Bolivar NP were summoned to the bedside. pronounced at 1955 by Nicole Bolivar NP.
--- NOTE | 2023-07-16 23:04 | PC.NURSE ---
Bob Grant called back and spoke to Yanira Camara RN. Lynda is the 's daughter in law and Bob has not been able to get ahold of Lynda or her , but was able to notify the eldest son Tres. He will not be coming up to the hospital and they have made a final decision to use [facility]. This nurse spoke with Bob, and she agrees to be listed as the contact on the body removal form.
--- NOTE | 2023-07-16 23:08 | PC.NURSE ---
Marco A FLOYD at [place] made aware of patient passing. Security notified as well.
--- NOTE | 2023-07-17 02:39 | PC.NURSE ---
0235 Spoke with Joyce from [facility] and she states that the patient was not a candidate for donation and can be [facility] the [facility].
--- NOTE | 2023-07-17 02:44 | PC.NURSE ---
Joyce, answering service for [facility], made a cheng that body is ready for knot picker cloth.
[2023-07-20 16:35] LABS: Vitamin D 1,25 (OH)2 Total 28 pg/mL (18-72); Vitamin D2 1,25 (OH)2 <8 pg/mL; Vitamin D3 1,25 (OH)2 28 pg/mL
--- NOTE | 2023-07-21 23:33 | PM.DDS ---
Discharge Summary Date and Time Date of : 07/16/23 Time of : 19:56 Provider Pronounced By: Nicole LINARES Probable Cause of Probable Cause of : cardiac Summary Hospital Course: Patient admitted here for chest pain and near syncope. Information obtained through chart review. Per provider who did initial history and physical, patient was confused and not able to recall events, last name, or maiden name. Reported that she was in her 30s. Patient was unable to provide input for HPI. Per chart review, EMS had been called to [facility] for near-syncope after nitro administration. Patient had chest discomfort and received 2 SL nitroglycerin. Upon EMS arrival patient was borderline hypotensive. Initial troponin 0.3 with repeat at 0.29. EKG showed some ST and T-wave abnormalities in high lateral leads concerning for ischemia which was a slight change from her EKG done in August of 2022. Patient not a good candidate for interventions or long-term anticoagulation. UA suggestive of UTI, however patient denied urinary symptoms. Started on ceftriaxone. Reported to rounding provider the next morning that she had no recurrent chest pain, remained difficult historian. Per bedside nursing staff in the evening, patient had gotten herself out of bed setting off the bed alarm to use the restroom. While in restroom, patient became weak, and less responsive. Staff brought wheelchair to the room and patient was returned to the bed. Heart rate found to be in the 20s. Call was made to myself that patient may pass imminently. Patient is DNR DNI. Time of called at 7:56 p.m. Additional Data Confirmation of as documented by pronouncing clinician: Pupillary Reflex, Palpable Pulses, Response to Stimuli, Heart Tones and Breath Sounds Family: contacted Name of Provider Notified: Nicole LINARES Time Provider Notified: 19:56 Was code activated?: No Provider Requests Autopsy: No Family Requests Autopsy: No Change Management Manager Notified: Yes Date [facility] Notified of : 07/16/23 Time [facility] Notified of : 20:52 Hospice patient?: No
== END 2023-07-16 19:56 | disposition expired ==
LOC: ANHED 21:26 → ANHIMU 22:13
PROVIDERS: Family Medicine; Admitting Provider Internal Medicine; Emergency Provider Emergency Medicine; PCP Hospitalist; Visit Provider Internal Medicine
DX: R07.9 Chest pain, unspecified (principal); R79.89 Other specified abnormal findings of blood chemistry; N39.0 Urinary tract infection, site not specified; R55 Syncope and collapse; I95.2 Hypotension due to drugs; E83.52 Hypercalcemia; E03.9 Hypothyroidism, unspecified; D64.9 Anemia, unspecified; E11.9 Type 2 diabetes mellitus without complications; I10 Essential (primary) hypertension; K21.9 Gastro-esophageal reflux disease without esophagitis; K58.9 Irritable bowel syndrome, unspecified; F20.9 Schizophrenia, unspecified; Z79.51 Long term (current) use of inhaled steroids; Z79.899 Other long term (current) drug therapy; Z66 Do not resuscitate
CPT/HCPCS: 36415; 71045; 80053; 80061; 82652; 84484; 85025; 85027; 85055; 87077; 87086; 87088; 87186; 93005; 96361; 96365; 96372; 96376; 99285; A9270; G0378; J0696; J1650; J7030